=== PATIENT | male | born 1990 | race Caucasian/White ===

== ENCOUNTER 2019-12-21 04:27 | Emergency (ER) | payer OTHER, MEDICAID, SELFPAY ==
[2019-12-21] VITALS (18 sets, daily range): BP systolic 116–153; BP diastolic 58–97; PULSE 54–150; RESP 13–31; TEMP 36.4; O2SAT 96–100; BMI 29.0
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
[2019-12-21] MEDS: LIDO 1%/SOD BICARB 8.4% (10ML) 10 ML SYRINGE INJ (04:55)
--- NOTE | 2019-12-21 05:29 | DI.CT.S_ITS ---
PROCEDURE: CT CERVICAL SPINE WO CON INDICATIONS: head injury, etoh TECHNIQUE: Noncontrast 3 mm thick sections acquired from the skull base to the T4 level. Sagittal and coronal reformats were then constructed. For radiation dose reduction, the following was used: automated exposure control, adjustment of mA and/or kV according to patient size. COMPARISON: [facility], CT, CT CERVICAL SPINE WITHOUT CONTRAST, 02/05/2018, 9:02. FINDINGS: Image quality: Excellent. Bones: No fractures or dislocations. Visualized superior ribs are intact. Congenital nonunion of the posterior arch of C1. Soft tissues: Prevertebral soft tissues are normal in thickness. No paravertebral hematomas. No apical pneumothoraces. IMPRESSION: No fracture. No acute osseous lesion. If symptoms and/or clinical suspicion for pathology persists, evaluation with MRI may be helpful for further assessment. Dictated by: Meseret Flores MD, PhD on 12/21/2019 at 8:05 Approved by: Meseret Flores MD, PhD on 12/21/2019 at 8:09
[2019-12-21 05:50] LABS: Add Manual Diff / Slide Review NO; Basophils Absolute Auto 100 /uL (0-100); Basophils Percent Auto 0.5 % (0-2); Eosinophils Absolute Auto 0 /uL (0-450); Eosinophils Percent Auto 0.2 % (2-4); Hematocrit 46.6 % (41-53); Hemoglobin 16.1 g/dL (13.5-17.5); Lymphocytes Absolute Auto 3000 /uL (1100-4500); Lymphocytes Percent Auto 22.9 % (25-40); Mean Corpuscular HGB Conc 34.5 % (30-36); Mean Corpuscular Hemoglobin 31.5 PG (26-34); Mean Corpuscular Volume 91.4 fL (80-100); Monocytes Absolute Auto 600 /uL (0-900); Monocytes Percent Auto 4.9 % (3-14); Neutrophils Absolute Auto 9400 /uL (1500-7000); Neutrophils Percent Auto 71.5 % (50-75); Platelet Count 297 X10^3/uL (150-400); Red Cell Distribution Width 12.3 % (11.6-14.8); White Blood Cell Count 13.1 X10^3/uL (4.5-11.0)
--- NOTE | 2019-12-21 05:56 | PC.NURSE ---
pt has multiple abrasions to face, including upper lip, left check, nose. Has a laceration to upper lip both interior and exterior, requiring sutures. has 2 abrasions to left knee
[2019-12-21 06:01] LABS: Blood Urea Nitrogen 12 mg/dL (9-20); Calcium 9.4 mg/dL (8.4-10.2); Carbon Dioxide 17 mmol/L (22-32); Chloride 108 mmol/L (98-107); Estimated Glomerular Filt Rate > 60.0 mL/min (>60); Glucose 101 mg/dL (70-100); HEMOLYSIS 17 (0-50); Potassium 4.1 mmol/L (3.4-5.1); Sodium 141 mmol/L (137-145)
[2019-12-21 06:11] LABS: Ethanol (ETOH) 202 mg/dL
[2019-12-21] MEDS: ACETAMINOPHEN 325 MG TABLET 650 MG PO (06:34)
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
--- NOTE | 2019-12-21 08:25 | DI.CT.S_ITS ---
PROCEDURE: CT HEAD/BRAIN WO CON INDICATIONS: Fall, head injury. compare to one 4 hrs ago per [facility] neurosurg TECHNIQUE: Noncontrast 4.5 mm thick angled axial sections acquired from the foramen magnum to the vertex, with coronal and sagittal reformats. For radiation dose reduction, the following was used: automated exposure control, adjustment of mA and/or kV according to patient size. COMPARISON: [facility], CT, CT HEAD/BRAIN WO CON, 12/21/2019, 4:43. [facility], CT, CT HEAD WITHOUT CONTRAST, 02/05/2018, 12:01. [facility], CT, CT HEAD WITHOUT CONTRAST, 02/05/2018, 9:02. FINDINGS: Image quality: Excellent. CSF spaces: Basal cisterns are patent. No extra-axial fluid collections. Ventricles are normal in size and shape. Brain: No midline shift. No intracranial masses or hemorrhage. Partially calcified lesion involving the right operculum is stable compared to prior exams. Osborn-white matter interface is normal. Skull and face: Calvarium and visualized facial bones are intact, without suspicious lesions. Sinuses: Visualized sinuses and mastoids are clear. IMPRESSION: 1. No acute intracranial disease process. 2. No intracranial hemorrhage. 3. Partially calcified lesion involving the right operculum is stable compared to prior examinations and is likely related to vascular malformation including cavernous angioma. Dictated by: Meseret Flores MD, PhD on 12/21/2019 at 8:48 Approved by: Meseret Flores MD, PhD on 12/21/2019 at 8:52
[2019-12-21] MEDS: IBUPROFEN 400 MG TABLET PO (10:04)
[2019-12-21] MEDS: OXYCODONE/ACETAMINOPHEN 5/325 TABLET 1 TAB PO (10:04)
[2019-12-21] MEDS: BACITRACIN 28 GM OINT 1 APPLIC TOP (10:26)
== END 2019-12-21 10:33 | disposition home or self-care (01) ==
PROVIDERS: Emergency Medicine; Emergency Provider Emergency Medicine
DX: Z02.89 Encounter for other administrative examinations (principal); S01.511A Laceration without foreign body of lip, initial encounter; W01.0XXA Fall on same level from slipping, tripping and stumbling without subsequent striking against object, initial encounter; S09.90XA Unspecified injury of head, initial encounter
CPT/HCPCS: 12011; 36415; 70450; 72125; 80048; 80320; 85025; 85610; 99284

== ENCOUNTER 2021-04-21 16:35 | Emergency (ER) | payer OTHER, SELFPAY ==
[2021-04-21 16:39] VITALS: BP 135/77; PULSE 75; RESP 18; TEMP 36.7; O2SAT 100
--- NOTE | 2021-04-21 17:48 | DI.RAD.S_ITS ---
PROCEDURE: XR FINGER LT MIN 2V INDICATIONS: Laceration near PIP 2nd digit joint TECHNIQUE: PA hand, 2 views of the index finger acquired. COMPARISON: None. FINDINGS: Bones: No acute fractures or dislocations. No suspicious bony lesions. Soft tissues: No suspicious soft tissue calcifications. Skin irregularity is seen along the dorsal surface of the index finger. No radiopaque foreign body is seen. IMPRESSION: No acute osseous abnormality. If clinical suspicion and/or symptoms persist, additional imaging with repeat plain films, or advanced imaging (e.g. CT, MRI) may be helpful for further assessment. Dictated by: Eze Mccarthy M.D. on 04/21/2021 at 18:26 Approved by: Eze Mccarthy M.D. on 04/21/2021 at 18:30
[2021-04-21] MEDS: LIDOCAINE 1% (PF) 5 ML 10 ML INJ (17:54)
--- NOTE | 2021-04-21 18:33 | ED.WOUNDLAC ---
HPI - Wound/Laceration <Vasile Robles PA-C - Last Filed: 04/21/21 20:32> General Chief Complaint: Wound/Laceration Stated Complaint: Cut left hand index finger Time Seen by Provider: 04/21/21 17:06 Source: patient Mode of arrival: Ambulatory History of Present Illness HPI narrative: 30-year-old male with no reported past medical history presents to the ED status post a left index finger laceration sustained just prior to arrival. 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 Patient denies numbness, tingling, weakness. Patient's last tetanus was 2 years ago. Related Data Previous Rx's Medication Instructions Recorded amoxicillin 875 mg-potassium 1 tab PO BID #20 tab 12/21/19 clavulanate 125 mg tablet (Augmentin) oxycodone-acetaminophen 5 mg-300 1 tab PO Q6H PRN #10 tab 12/21/19 mg tablet Allergies Allergy/AdvReac Type Severity Reaction Status Date / Time No Known Drug Allergies Allergy Unverified 12/08/17 15:55 Review of Systems <Vasile Robles PA-C - Last Filed: 04/21/21 20:32> Review of Systems ROS Unobtainable: All systems reviewed & are unremarkable except as noted in HPI and below Constitutional Constitutional: Denies chills, Denies fatigue, Denies fever(s), Denies frequent falls, Denies lethargy and Denies weakness Eyes Eyes: Denies change in vision, Denies eye discharge, Denies irritation and Denies loss of vision ENT Ears, Nose, Mouth, and Throat: Denies change in voice, Denies dizziness, Denies neck pain, Denies sore throat and Denies throat swelling Cardiovascular Cardiovascular: Denies chest pain, Denies irregular heart rhythm, Denies lightheadedness, Denies palpitations, Denies dyspnea, Denies dyspnea on exertion and Denies orthopnea Respiratory Respiratory: Denies cough, Denies dyspnea, Denies dyspnea on exertion and Denies wheezing Gastrointestinal Gastrointestinal: Denies abdominal pain, Denies change in bowel habits, Denies diarrhea, Denies nausea and Denies vomiting Genitourinary Genitourinary: Denies hematuria, Denies flank pain, Denies urinary incontinence and Denies urinary urgency Musculoskeletal Musculoskeletal: Denies back pain, Denies muscle weakness, Denies neck pain, Denies numbness and Denies tingling Integumentary/Breasts Skin/Breast: Denies pruritus, Denies erythema, Denies rash and Denies wounds Comments: Laceration to left index finger. Neurologic Neurologic: Denies behavioral changes, Denies confusion, Denies dizziness, Denies frequent falls, Denies loss of vision, Denies numbness, Denies tingling and Denies weakness Psychiatric Psychiatric: Denies anxiety, Denies behavioral changes, Denies confusion, Denies depression, Denies homicidal ideation and Denies suicidal ideation Endocrine Endocrine: Denies fatigue, Denies flushing and Denies palpitations Hematologic/Lymphatic Hematologic/Lymphatic: Denies easy bruising Allergic/Immunologic Allergic/Immunologic: Denies urticaria, Denies throat swelling and Denies wheezing Patient History <Vasile Robles PA-C - Last Filed: 04/21/21 20:32> Medical History ADHD (attention deficit hyperactivity disorder) Allergic rhinitis Ankle pain Fractures (2015) Surgical History History of ankle surgery (2016) Family History Family/Other Foster care (status) Social History Smoking Status: Current every day smoker Smoking Status: Current every day smoker alcohol intake frequency: 0-2 drinks per day Substance Use Type: marijuana Exam <Vasile Robles PA-C - Last Filed: 04/21/21 20:32> Initial Vital Signs Initial Vital Signs: Vital Signs Temperature 98.0 F 04/21/21 16:39 Pulse Rate 75 04/21/21 16:39 Respiratory Rate 18 04/21/21 16:39 Blood Pressure 135/77 04/21/21 16:39 Pulse Oximetry 100 04/21/21 16:39 Const General: cooperative, healthy appearing and comfortable Resp Effort & Inspection: normal respiratory effort Auscultation: clear to auscultation bilaterally Cardio Rate: regular rate Rhythm: regular rhythm Skin Other: Laceration with flap to dorsal aspect of left index finger, just proximal to the PIP. No tendon involvement noted. Full range of motion. Strength and sensation intact. Cap refill less than 2 mm. Neurovascularly intact. Bleeding controlled with pressure. Neuro General: patient alert, patient awake and patient oriented x3 Psych Appearance: grossly normal <Bunny Ratliff DO - Last Filed: 04/22/21 07:13> Initial Vital Signs Initial Vital Signs: Vital Signs Temperature 98.0 F 04/21/21 16:39 Pulse Rate 75 04/21/21 16:39 Respiratory Rate 18 04/21/21 16:39 Blood Pressure 135/77 04/21/21 16:39 Pulse Oximetry 100 04/21/21 16:39 Procedures <Vasile Robles PA-C - Last Filed: 04/21/21 20:32> Laceration Repair Laceration 1: Site: hand Side (If applicable): left Size (cm): 1 Description: flap Depth: simple, single layer Local Anesthetic: lidocaine 1% Amount of anesthesia used (mL): 7 Pre-repair: wound explored, irrigated extensively and deep structures intact Skin layer closed with: nylon Size (cm): 4-0 Number of sutures: 2 Technique: other (Half buried mattress) Course <Vasile Robles PA-C - Last Filed: 04/21/21 20:32> Orders Ordered: Discontinued Medications Lidocaine HCl (Lidocaine 1% (Pf) 5 Ml) 10 ml INJ NOW ONE Stop: 04/21/21 17:48 Last Admin: 04/21/21 17:54 Dose: 10 ml Documented by: JORDYN Oxycodone/Acetaminophen (Oxycodone/Acetaminophen 5/325 Tablet) 1 tab PO NOW ONE Stop: 04/21/21 19:18 Last Admin: 04/21/21 19:26 Dose: 1 tab Documented by: RYAN Vital Signs Vital signs: Vital Signs - 8 hr 04/21/21 16:39 Temperature 98.0 F Pulse Rate 75 Respiratory Rate 18 Blood Pressure 135/77 Pulse Oximetry 100 <DO Ruthie Carpio Last Filed: 04/22/21 07:13> Orders Ordered: Discontinued Medications Lidocaine HCl (Lidocaine 1% (Pf) 5 Ml) 10 ml INJ NOW ONE Stop: 04/21/21 17:48 Last Admin: 04/21/21 17:54 Dose: 10 ml Documented by: JORDYN Oxycodone/Acetaminophen (Oxycodone/Acetaminophen 5/325 Tablet) 1 tab PO NOW ONE Stop: 04/21/21 19:18 Last Admin: 04/21/21 19:26 Dose: 1 tab Documented by: RYAN Vital Signs Vital signs: Vital Signs - 8 hr 04/21/21 16:39 Temperature 98.0 F Pulse Rate 75 Respiratory Rate 18 Blood Pressure 135/77 Pulse Oximetry 100 MDM - Wound/Laceration <Hyma CHARY Robles - Last Filed: 04/21/21 20:32> Imaging Data Extremity x-ray #1: Radiologist's Impression: PROCEDURE:? XR FINGER LT MIN 2V ? INDICATIONS:? Laceration near PIP 2nd digit joint ? TECHNIQUE:? PA hand, 2 views of the index finger acquired.? ? COMPARISON:? None. ? FINDINGS:? ? Bones:? No acute fractures or dislocations.? No suspicious bony lesions.? ? Soft tissues:? No suspicious soft tissue calcifications.? Skin irregularity is seen along the dorsal surface of the index finger.? No radiopaque foreign body is seen. ? IMPRESSION:? No acute osseous abnormality.? If clinical suspicion and/or symptoms persist, additional imaging with repeat plain films, or advanced imaging (e.g. CT, MRI) may be helpful for further assessment. ? ? Dictated by: Eze Mccarthy M.D. on 04/21/2021 at 18:26 ? ? Approved by: Eze Mccarthy M.D. on 04/21/2021 at 18:30 ? [facility] Narrative Medical decision making narrative: 30-year-old male with no reported past medical history presents to the ED status post a left index finger laceration sustained just prior to arrival. X-rays were obtained to rule out fractures/dislocations. X-ray negative for fractures/dislocations. Patient's laceration was repaired with sutures. Patient tolerated the procedure well. Patient discharged home with ED return precautions, instructions for suture removal. Patient verbalized understanding. Discharge Plan Departure Patient Disposition: Home Clinical Impression: Laceration Instructions: DI for Laceration Repair Activity Restrictions/Additional Instructions: You were evaluated in the ED today for a finger injury. Your x-ray did not show any fractures or dislocations. Your laceration was repaired with sutures. The sutures will need to be removed in 7-10 days. You may return to the ED or you may go to an urgent care or your primary care provider for the suture removal. As with all lacerations, please watch out for signs of infection such as redness, increased pain, discharge, warmth. Return to the ED if you notice any signs of infection. Prescriptions: No Action amoxicillin-pot clavulanate [Augmentin] 875-125 mg tablet 1 tab PO BID Qty: 20 0RF oxycodone-acetaminophen 5-300 mg tablet 1 tab PO Q6H PRN (Reason: pain) Qty: 10 0RF Referrals: Celine Jerez ARNP [Primary Care Provider] - <Bunny Ratliff DO - Last Filed: 04/22/21 07:13> Cosign ED Attending Cosignature Attestation: Dr Ratliff Co-Sign Statement: I was available for consultation during this patient's emergency department visit. This chart is signed by myself for administrative purposes only. I did not have direct contact with this patient during this visit. They were seen independently by the APC.
[2021-04-21] MEDS: OXYCODONE/ACETAMINOPHEN 5/325 TABLET 1 TAB PO (19:26)
== END 2021-04-21 19:28 | disposition home or self-care (01) ==
PROVIDERS: Emergency Provider Student in an Organized Health Care Education/Training Program; PCP Nurse Practitioner Family
DX: S61.211A Laceration without foreign body of left index finger without damage to nail, initial encounter (principal); W26.0XXA Contact with knife, initial encounter; Y99.0 Civilian activity done for income or pay
CPT/HCPCS: 12001; 73140; 99283; 99284

== ENCOUNTER → 2021-08-11 07:59 | Outpatient (CLI) | payer OTHER, MEDICAID, SELFPAY | PROVIDERS: PCP Nurse Practitioner Family; Referring Provider Physician Assistant; Visit Provider Physician Assistant | DX: J02.9 Acute pharyngitis, unspecified (principal) | CPT/HCPCS: 87880 ==

== ENCOUNTER 2021-08-15 15:47 | Emergency (ER) | payer OTHER, MEDICAID, SELFPAY ==
[2021-08-15 15:53] VITALS: BP 143/90; PULSE 85; RESP 16; TEMP 36.1; O2SAT 98; BMI 31.1
[2021-08-15] MEDS: HYDROCODONE/ACET 5/325 TABLET 1 TAB PO (17:37)
[2021-08-15] MEDS: LIDOCAINE/PRILOCAINE 5 GM TOP (18:11)
--- NOTE | 2021-08-15 18:31 | ED_ITS ---
HPI - Wound/Laceration <Birgit Montes De Oca PA-C - Last Filed: 08/15/21 19:15> General Chief Complaint: Wound/Laceration Stated Complaint: Cut finger on left hand Time Seen by Provider: 08/15/21 16:36 History of Present Illness HPI narrative: Patient is a 31-year-old male presenting today with a finger laceration occurred last night. He reports he was sharpening a cutting knife, and accidentally sliced the finger pad off his left 3rd digit. He irrigated the wound, applied pressure, covered with a dressing and bleeding subsided. He reports substantial pain, and took 800 mg of ibuprofen 3 hours ago. He is presenting today for further evaluation of his wounds, and to see if further intervention is necessary. He reports good ROM but elicits pain. He reports an up-to-date Tdap. Related Data Home Medications Medication Instructions Recorded Confirmed ibuprofen 800 mg tablet 800 mg PO Q8H 08/11/21 08/11/21 methylphenidate HCl 54 mg 54 mg PO DAILY 08/11/21 08/11/21 tablet,extended release 24 hr (Concerta) Previous Rx's Medication Instructions Recorded amoxicillin 500 mg capsule 500 mg PO BID 10 Days #20 cap 08/11/21 Allergies Allergy/AdvReac Type Severity Reaction Status Date / Time No Known Drug Allergies Allergy Unverified 08/15/21 15:54 Review of Systems <Birgit Montes De Oca PA-C - Last Filed: 08/15/21 19:15> Review of Systems Narrative: GENERAL: Denies fatigue, fever, or chills HEENT: Denies ear pain, vision changes, sore throat, or difficulty swallowing RESPIRATORY: Denies shortness of breath, cough, or wheezing CARDIOVASCULAR: Denies chest pain, pressure, palpitations, or edema GASTROINTESTINAL: Denies, nausea, vomiting, changes in bowel movements, or abdominal pain : Denies dysuria, frequency, hematuria, or flank pain MUSCULOSKELETAL: Denies weakness, arthralgias, or myalgias SKIN: See HPI. NEUROLOGIC: Denies weakness, dizziness, headache, numbness, tingling or confusion PSYCHIATRIC: No concerning psychosocial issues. Patient History <Birgit Montes De Oca PA-C - Last Filed: 08/15/21 19:15> Medical History (Updated 08/15/21 @ 18:50 by Birgit Montes De Oca PA-C) ADHD (attention deficit hyperactivity disorder) Allergic rhinitis Ankle pain Fractures (2016) Surgical History History of ankle surgery (2016) Family History Family/Other Foster care (status) Social History Smoking Status: Current every day smoker Smoking Status: Current every day smoker alcohol intake frequency: 0-2 drinks per day Substance Use Type: marijuana Exam <Birgit Montes De Oca PA-C - Last Filed: 08/15/21 19:15> Narrative Exam Narrative: GENERAL: 31 year old patient appears stated age. Well-developed patient, in mild distress. HEAD: Atraumatic. Normocephalic. EYES: Pupils equal round and reactive. Extraocular motions intact. No scleral icterus. No injection or drainage. ENT: Nose without bleeding, purulent drainage. Throat without erythema, tonsillar hypertrophy or exudate. Airway patent. NECK: Trachea midline. Non tender CARDIOVASCULAR: Regular rate and rhythm without murmurs, gallops, or rubs. RESPIRATORY: Clear to auscultation. Breath sounds equal bilaterally. No wheezes, rales, or rhonchi. GASTROINTESTINAL: Abdomen soft, non-tender, nondistended. EXTREMITIES: No edema or joint tenderness. BACK: Nontender without deformity or crepitance. No flank tenderness. NEURO: AOx3. SKIN: Small avulsion of left 3rd digit finger pad, mild swelling, not bleeding. Soft tissue does not appear to be affected. No skin flap. Initial Vital Signs Initial Vital Signs: Vital Signs Temperature 96.9 F L 08/15/21 15:53 Pulse Rate 85 08/15/21 15:53 Respiratory Rate 16 08/15/21 15:53 Blood Pressure 143/90 H 08/15/21 15:53 Pulse Oximetry 98 08/15/21 15:53 <Shantal Espinosa DO - Last Filed: 08/19/21 07:39> Initial Vital Signs Initial Vital Signs: Vital Signs Temperature 96.9 F L 08/15/21 15:53 Pulse Rate 85 08/15/21 15:53 Respiratory Rate 16 08/15/21 15:53 Blood Pressure 143/90 H 08/15/21 15:53 Pulse Oximetry 98 08/15/21 15:53 Course <Birgit Montes De Oca PA-C - Last Filed: 08/15/21 19:15> Orders Ordered: Discontinued Medications Hydrocodone Bitart/Acetaminophen (Hydrocodone/Acet 5/325 Tablet) 1 tab PO NOW ONE Stop: 08/15/21 17:29 Last Admin: 08/15/21 17:37 Dose: 1 tab Documented by: CAREN Lidocaine/Prilocaine (Lidocaine/Prilocaine 5 Gm) 5 gm TOP NOW ONE Stop: 08/15/21 18:10 Last Admin: 08/15/21 18:11 Dose: 5 gm Documented by: DENISE Vital Signs Vital signs: Vital Signs - 8 hr 08/15/21 15:53 Temperature 96.9 F L Pulse Rate 85 Respiratory Rate 16 Blood Pressure 143/90 H Pulse Oximetry 98 <Shantal Espinosa DO - Last Filed: 08/19/21 07:39> Orders Ordered: Discontinued Medications Hydrocodone Bitart/Acetaminophen (Hydrocodone/Acet 5/325 Tablet) 1 tab PO NOW ONE Stop: 08/15/21 17:29 Last Admin: 08/15/21 17:37 Dose: 1 tab Documented by: CAREN Lidocaine/Prilocaine (Lidocaine/Prilocaine 5 Gm) 5 gm TOP NOW ONE Stop: 08/15/21 18:10 Last Admin: 08/15/21 18:11 Dose: 5 gm Documented by: DENISE Vital Signs Vital signs: Vital Signs - 8 hr 08/15/21 15:53 Temperature 96.9 F L Pulse Rate 85 Respiratory Rate 16 Blood Pressure 143/90 H Pulse Oximetry 98 MDM - Wound/Laceration <Birgit Montes De Oca PA-C - Last Filed: 08/15/21 19:15> MDM Narrative Medical decision making narrative: Patient is a 31-year-old man presenting after a finger laceration that occurred last night. He was sharpening a knife and accidentally sliced his left 3rd digit. Upon inspection, a portion of his left 3rd digit finger pad has been avulsed. It is no longer bleeding and looks well cleaned. Topical lidocaine was applied, irrigated and cleaned his wound, and applied a clean dressing. He declined a digital block for pain management. He was instructed to keep his wound clean and change his dressings regularly, and to follow up with his PCP for further evaluation and management. His instructed to take ibuprofen as needed for pain management. If increasing redness, inflammation, purulent drainage, or any other concerning symptoms arise instructed to return back to the ER. Findings and discharge diagnosis discussed with patient/family followed by verbalization of understanding Return precautions discussed with patient/family whom verbalize understanding. Discharge Plan Departure Patient Disposition: Home Clinical Impression: Avulsion of skin Instructions: DI for Laceration Repair Activity Restrictions/Additional Instructions: *You have been diagnosed with a skin avulsion. Please keep your wound clean and change your dressing regularly. You may also apply antibiotic ointment to your wound. You can use ibuprofen for pain management as needed. You should follow- up with your primary care provider for further evaluation and management as wound heals. If you experience increasing redness, swelling, pain, or or abnormal drainage please return back to the ER. *Please follow up with your primary care provider in 2-3 days, call for an appointment. Let them know you were seen in the Emergency Department and that we ask that you be seen in follow up. We will electronically transmit a record of today's note if your PCP is in our system *If you do not have a primary care provider please contact the [facility] Call Center at [phone] and they can help get you set up with a doctor in the community. *Return to Emergency Department if you should have any new, worsening or concerning symptoms, such as [fever greater than 101 F, shaking chills, worsening pain, persistent vomiting or other bothersome symptoms] Prescriptions: No Action ibuprofen 800 mg tablet 800 mg PO Q8H 0RF methylphenidate HCl [Concerta] 54 mg tablet extended release 24hr 54 mg PO DAILY 0RF amoxicillin 500 mg capsule 500 mg PO BID 10 Days Qty: 20 0RF Rx Instructions: Please begin on 08/11/21. Referrals: Celine Jerez ARNP [Primary Care Provider] - <Shantal Espinosa DO - Last Filed: 08/19/21 07:39> Cosign ED Attending Nathaly Attestation: I was immediately available in the department for consultation. Documentation has been reviewed. Case was discussed.
== END 2021-08-15 19:11 | disposition home or self-care (01) ==
PROVIDERS: Emergency Provider Physician Assistant; PCP Nurse Practitioner Family
DX: S61.213A Laceration without foreign body of left middle finger without damage to nail, initial encounter (principal); W26.0XXA Contact with knife, initial encounter
CPT/HCPCS: 99283

== ENCOUNTER 2021-08-29 05:39 | Emergency (ER) | payer OTHER, MEDICAID, SELFPAY ==
[2021-08-29 05:52] VITALS: BP 151/87; PULSE 78; RESP 16; TEMP 36.3; O2SAT 99; BMI 25.0
--- NOTE | 2021-08-29 05:55 | ED_ITS ---
HPI - General Adult General Chief complaint: Extremity Injury, Upper Stated complaint: pain in right arm x1 day Time Seen by Provider: 08/29/21 05:41 Source: patient Mode of arrival: Ambulatory Limitations: no limitations History of Present Illness HPI narrative: Patient is a 31-year-old male who is here for evaluation of right shoulder pain and discomfort and also tingling to his right little finger and ring finger. He states that his symptoms started when he woke from sleep several hours ago. He thinks that he hurt it last evening when he was lifting a pot of water. He also states that he was arm wrestling yesterday. Has not tried anything for symptoms prior to arrival. He states that it hurts deep down into his shoulder. No elbow pain and no wrist pain. Related Data Home Medications Medication Instructions Recorded Confirmed ibuprofen 800 mg tablet 800 mg PO Q8H 08/11/21 08/11/21 methylphenidate HCl 54 mg 54 mg PO DAILY 08/11/21 08/11/21 tablet,extended release 24 hr (Concerta) Allergies Allergy/AdvReac Type Severity Reaction Status Date / Time No Known Drug Allergies Allergy Unverified 08/15/21 15:54 Review of Systems Constitutional Constitutional: Reports system reviewed and no additional complaints, except as documented Musculoskeletal Musculoskeletal: Reports system reviewed and no additional complaints, except as documented Integumentary/Breasts Skin/Breast: Reports system reviewed and no additional complaints, except as documented Neurologic Neurologic: Reports system reviewed and no additional complaints, except as documented Patient History Medical History (Updated 08/29/21 @ 06:32 by Bunny Ratliff DO) ADHD (attention deficit hyperactivity disorder) Allergic rhinitis Ankle pain Fractures (2015) Surgical History History of ankle surgery (2016) Family History Family/Other Foster care (status) Social History Smoking Status: Current every day smoker Smoking Status: Current every day smoker alcohol intake frequency: 0-2 drinks per day Substance Use Type: marijuana Exam Initial Vital Signs Initial Vital Signs: Vital Signs Temperature 97.3 F L 08/29/21 05:52 Pulse Rate 78 08/29/21 05:52 Respiratory Rate 16 06/11/22 05:52 Blood Pressure 151/87 H 08/29/21 05:52 Pulse Oximetry 99 08/29/21 05:52 Oxygen Delivery Method 08/29/21 05:52 HENIN Head: normal to inspection and normocephalic Cardio Pulses: radial pulses present on the right Neuro Other: Patient reports decreased sensation to the right little finger and right ring finger to palpation. He is able to flex and extend at the wrist and also flex and extend at the elbow. Extrem Other: Patient flex and extend at the wrist and at the elbow. He reports pain both anterior over the biceps tendon and also posterior over the infraspinatus muscles on the right. Patient states he cannot actively move his shoulder secondary to pain but passively this shoulder has full range of motion. There are no mechanical symptoms to include clicking locking or popping. Course Orders Ordered: ED Orders 08/29/21 05:55 XR shoulder RT min 2V Stat Vital Signs Vital signs: Vital Signs - 8 hr 08/29/21 05:52 Temperature 97.3 F L Pulse Rate 78 Respiratory Rate 16 Blood Pressure 151/87 H Pulse Oximetry 99 Oxygen Delivery Method Room Air Medical Decision Making Imaging Data Extremity x-ray #1: Radiologist's Impression: No fracture, subluxations or dislocations of the right shoulder MDM Narrative Medical decision making narrative: Patient is vascularly intact. Subjective decreased sensation in the right little and ring finger corresponding to ulnar nerve although he has no elbow discomfort. Unable to obtain a full exam of his shoulder secondary to his inability/unwillingness to actively move his right shoulder although he has tenderness over the biceps tendon and tenderness over the infraspinatus muscle. X-ray show no signs of fracture. I suspect that the issue with his fingers are secondary to inflammation from the injury to his right shoulder. He potentially could have either biceps tendon or rotator cuff tendon injuries given the issues had he had when he felt a pop lifting a pot yesterday and also arm wrestling. No further workup required in the emergency department. Recommended anti- inflammatories and follow-up. Discharge Plan Departure Patient Disposition: Home Clinical Impression: Acute pain of right shoulder Instructions: How To Perform RICE (Rest, Ice, Compress, Elevate), DI for Shoulder Pain Activity Restrictions/Additional Instructions: The x-ray did not show any signs of fractures or dislocation. There is a potential that you have injured the muscles/tendons in your shoulder either from arm wrestling yesterday or lifting that pot that you described yesterday. Right now the only thing that is needed is more time to see if your symptoms improve and anti-inflammatories. You can also try other conservative measures such as icing your shoulder. If your symptoms persist more than 7-10 days you will need to follow-up with your primary doctor as you may need further evaluation and referral to see Physical therapy or potentially more advanced imaging such as an MRI. Prescriptions: No Action ibuprofen 800 mg tablet 800 mg PO Q8H methylphenidate HCl [Concerta] 54 mg tablet extended release 24hr 54 mg PO DAILY Referrals: Celine Jerez ARNP [Primary Care Provider] -
--- NOTE | 2021-08-29 05:55 | DI.RAD.S_ITS ---
PROCEDURE: XR SHOULDER RT MIN 2V INDICATIONS: pain after arm wrestling and lifting a pot TECHNIQUE: Three views of the shoulder were acquired. COMPARISON: None. FINDINGS: Bones: No acute fractures or dislocations. No suspicious bony lesions. Visualized ribs appear intact. Mild acromioclavicular joint osteoarthrosis. Soft tissues: No suspicious soft tissue calcifications. Atelectasis is seen in the right lung base. IMPRESSION: No acute osseous abnormality. If clinical suspicion and/or symptoms persist, additional imaging with repeat plain films, or advanced imaging (e.g. CT, MRI) may be helpful for further assessment. There is no significant discrepancy when compared to the overnight preliminary report. Dictated by: Eze Mccarthy M.D. on 08/29/2021 at 7:46 Approved by: Eze Mccarthy M.D. on 08/29/2021 at 7:47
[2021-08-29] MEDS: KETOROLAC 30 MG/ML VIAL IM (06:37)
== END 2021-08-29 06:55 | disposition home or self-care (01) ==
PROVIDERS: Emergency Provider Emergency Medicine; PCP Nurse Practitioner Family
DX: M25.511 Pain in right shoulder (principal); X50.9XXA Other and unspecified overexertion or strenuous movements or postures, initial encounter
CPT/HCPCS: 73030; 96372; 99283; J1885